=== PATIENT | female | born 1975 | race Caucasian/White ===

== ENCOUNTER 2016-12-27 20:34 | Emergency (ER) | payer OTHER ==
[2016-12-27 21:03] VITALS: BP 123/75
[2016-12-27] MEDS ORDERED: Azithromycin TAB* 250 MG PO ONE (21:15)
[2016-12-27] MEDS ORDERED: Albuterol HFA INHALER* 8 gm MDI INH ONE (21:15)
--- NOTE | 2016-12-27 21:23 | UC ---
Respiratory Complaint HPI - HPI Summary HPI Summary: For 2 weeks has had nasal congestion, facial pressure/pain, cough, and trouble breathing. Denies wheezing; had high fever in the beginning, then has had a lot of temps in the 99-100 range. No hx of asthma or COPD. - History of Current Complaint Chief Complaint: UCRespiratory Stated Complaint: RESPIRATORY Time Seen by Provider: 12/27/16 20:57 Hx Obtained From: Patient Hx Last Menstrual Period: 12/19/16 ?: No Onset/Duration: Gradual Onset, Lasting Weeks Timing: Constant Severity Initially: Moderate Severity Currently: Moderate Character: Cough: Productive Aggravating Factors: Deep Breaths, Recumbent Position Alleviating Factors: Upright Position Associated Signs And Symptoms: Positive: Fever, URI, Nasal Congestion, Sinus Discomfort - Allergies/Home Medications Allergies/Adverse Reactions: Allergies Allergy/AdvReac Type Severity Reaction Status Date / Time Hydrocodone [From Vicodin] Allergy Severe Hives Verified 12/27/16 20:54 Amoxicillin Allergy Hives Verified 12/27/16 20:54 Erythromycin Allergy Hives Verified 12/27/16 20:54 Penicillins Allergy Difficulty Verified 12/27/16 20:54 Breathing Sulfamethoxazole Allergy Difficulty Verified 12/27/16 20:54 w/Trimethoprim Breathing [From Bactrim] lobster Allergy Intermediate Hives Uncoded 12/27/16 20:54 red dye Allergy Intermediate Hives Uncoded 12/27/16 20:54 Home Medications: Home Medications Acetaminophen TAB* [Tylenol TAB*] 650 mg PO Q4H PRN 12/27/16 [History Confirmed 12/27/16] GuaiFENesin DM* [Robitussin DM*] 10 ml PO Q6H PRN 12/27/16 [History Confirmed ] PMH/Surg Hx/FS Hx/Imm Hx Previously Healthy: Yes - Surgical History Surgical History: Yes Surgery Procedure, Year, and Place: T&A - Family History Known Family History: Positive: Hypertension - Social History Occupation: Employed Full-time Alcohol Use: Occasionally Substance Use Type: None Smoking Status (MU): Heavy Every Day Tobacco Smoker Type: Cigarettes Amount Used/How Often: 4 CIGS PER DAY Length of Time of Smoking/Using Tobacco: 21 Years Have You Smoked in the Last Year: Yes Household Exposure Type: Cigarettes - Immunization History Most Recent Influenza Vaccination: April 2015 Review of Systems Constitutional: Fever - resolved Skin: Negative Eyes: Negative ENT: Sore Throat, Nasal Discharge Respiratory: Cough Cardiovascular: Negative Gastrointestinal: Negative Genitourinary: Negative Motor: Negative Neurovascular: Negative Musculoskeletal: Negative Neurological: Negative Psychological: Negative All Other Systems Reviewed And Are Negative: Yes Physical Exam Triage Information Reviewed: Yes Appearance: Well-Appearing, No Pain Distress, Well-Nourished Vital Signs: Initial Vital Signs Temp 98.3 F 12/27/16 20:56 Pulse 82 12/27/16 20:56 Resp 20 12/27/16 20:56 BP 123/75 12/27/16 20:56 Pulse Ox 97 12/27/16 20:56 Vital Signs Reviewed: Yes Eye Exam: Normal Eyes: Positive: Conjunctiva Clear ENT: Positive: Pharynx normal, Nasal congestion, Nasal drainage. Negative: Tonsillar swelling, Tonsillar exudate Dental Exam: Normal Neck exam: Normal Neck: Positive: Supple, Nontender, No Lymphadenopathy Respiratory: Positive: Normal breath sounds, No respiratory distress Cardiovascular Exam: Normal Cardiovascular: Positive: RRR, No Murmur Musculoskeletal Exam: Normal Neurological Exam: Normal Neurological: Positive: Alert Psychological Exam: Normal Skin Exam: Normal Diagnostic Evaluation - Laboratory O2 Sat by Pulse Oximetry: 97 Respiratory Course/Dx - Differential Dx/Diagnosis Provider Diagnoses: acute bronchitis. sinusitis. elevated blood pressure due to discomfort Discharge - Discharge Plan Condition: Stable Disposition: HOME Prescriptions: Azithromycin [Azithromycin 500 MG TAB] 500 mg PO DAILY #3 tab Benzonatate CAP* [Tessalon 100 MG CAP*] 100 mg PO TID PRN #30 cap PRN Reason: cough Patient Education Materials: Acute Bronchitis (ED), Sinusitis (ED) Forms: *Work Release Referrals: MEHNAZ Houston [Primary Care Provider] - Additional Instructions: Call or return if you develop increasing fever, shortness of breath, chest pain , bloody sputum, or otherwise worsen. If you have not improved at all after several days, contact your primary care physician or return here.
== END 2016-12-27 21:44 | disposition home or self-care (01) ==
LOC: UCCORT 20:34
DX: J20.9 Acute bronchitis, unspecified (principal); J32.9 Chronic sinusitis, unspecified; R03.0 Elevated blood-pressure reading, without diagnosis of hypertension; Z72.0 Tobacco use
CPT/HCPCS: 99212; A9270-GY; G0463

== ENCOUNTER 2017-02-07 07:01 | Emergency (ER) | payer OTHER ==
--- NOTE | 2017-02-07 07:13 | UC ---
Hip/Pelvis Pain - HPI Summary HPI Summary: 42 YEAR OLD FEMALE PRESENTS WITH LEFT HIP PAIN. - History Of Current Complaint Stated Complaint: LEFT HIP PAIN Time Seen by Provider: 02/07/17 07:06 Hx Last Menstrual Period: 12/19/16 - Allergies/Home Medications Allergies/Adverse Reactions: Allergies Allergy/AdvReac Type Severity Reaction Status Date / Time Hydrocodone [From Vicodin] Allergy Severe Hives Verified 02/07/17 07:09 Amoxicillin Allergy Hives Verified 02/07/17 07:09 Penicillins Allergy Difficulty Verified 02/07/17 07:09 Breathing Sulfamethoxazole Allergy Difficulty Verified 02/07/17 07:09 w/Trimethoprim Breathing [From Bactrim] Erythromycin AdvReac GI Verified 02/07/17 07:09 lobster Allergy Intermediate Hives Uncoded 02/07/17 07:09 red dye Allergy Intermediate Hives Uncoded 02/07/17 07:09 PMH/Surg Hx/FS Hx/Imm Hx - Surgical History Surgical History: Yes Surgery Procedure, Year, and Place: T&A - Family History Known Family History: Positive: Hypertension - Social History Alcohol Use: Occasionally Substance Use Type: None Smoking Status (MU): Heavy Every Day Tobacco Smoker Type: Cigarettes Amount Used/How Often: 4 CIGS PER DAY Length of Time of Smoking/Using Tobacco: 21 Years Have You Smoked in the Last Year: Yes Household Exposure Type: Cigarettes - Immunization History Most Recent Influenza Vaccination: April 2015 Review of Systems Constitutional: Negative Skin: Negative Eyes: Negative ENT: Negative Respiratory: Negative Cardiovascular: Negative Gastrointestinal: Negative Genitourinary: Negative Motor: Negative Neurovascular: Negative Musculoskeletal: Arthralgia, Myalgia - left hip pain, Other: Neurological: Negative Psychological: Negative All Other Systems Reviewed And Are Negative: Yes Physical Exam Triage Information Reviewed: Yes Hip Injury Course/Dx - Differential Dx/Diagnosis Provider Diagnoses: left hip pain Discharge - Discharge Plan Condition: Stable Disposition: HOME Prescriptions: Meloxicam [Mobic] 7.5 mg PO BID PC #30 tab Methocarbamol [Robaxin-750 MG TAB] 750 mg PO Q8HR PRN #30 tab PRN Reason: Spasms - Back Patient Education Materials: Hip Pain (ED) Referrals: MEHNAZ Houston [Primary Care Provider] - If Needed
[2017-02-07 07:30] VITALS: BP 120/81
== END 2017-02-07 07:24 | disposition home or self-care (01) ==
LOC: UCCORT 07:01
DX: M25.552 Pain in left hip (principal); Z88.5 Allergy status to narcotic agent; Z88.1 Allergy status to other antibiotic agents; Z88.0 Allergy status to penicillin; Z88.2 Allergy status to sulfonamides; F17.210 Nicotine dependence, cigarettes, uncomplicated
CPT/HCPCS: 99212; G0463

== ENCOUNTER 2017-08-22 07:02 | Emergency (ER) | payer OTHER ==
--- NOTE | 2017-08-22 07:05 | UC ---
Eye Complaint HPI - HPI Summary HPI Summary: 42 year old female with eye complaint. Right eye pain and swelling, redness, discharge onset one week ago; no injury . she wears contact but last day 3 days ago. no vision changes . no fever. no headache. no FB sensation [ End ] - History of Current Complaint Stated Complaint: RIGHT EYE COMPLAINT Time Seen by Provider: 08/22/17 07:04 Hx Obtained From: Patient Hx Last Menstrual Period: 12/19/16 ?: No Onset/Duration: Gradual Onset Timing: Constant Severity Initially: Mild Severity Currently: Moderate Aggravating Factor(s): Nothing Alleviating Factor(s): Nothing Associated Signs And Symptoms: Positive: Drainage (Clear), Drainage (Purulent) - Allergies/Home Medications Allergies/Adverse Reactions: Allergies Allergy/AdvReac Type Severity Reaction Status Date / Time Hydrocodone [From Vicodin] Allergy Severe Hives Verified 08/22/17 07:09 Amoxicillin Allergy Hives Verified 08/22/17 07:09 Penicillins Allergy Difficulty Verified 08/22/17 07:09 Breathing Sulfamethoxazole Allergy Difficulty Verified 08/22/17 07:09 w/Trimethoprim Breathing [From Bactrim] Erythromycin AdvReac GI Verified 08/22/17 07:09 lobster Allergy Intermediate Hives Uncoded 08/22/17 07:09 red dye Allergy Intermediate Hives Uncoded 08/22/17 07:09 erythromycin Allergy Vomiting Uncoded 08/22/17 07:19 PMH/Surg Hx/FS Hx/Imm Hx Previously Healthy: Yes Cardiovascular History: Hypertension - Surgical History Surgical History: Yes Surgery Procedure, Year, and Place: T&A - Family History Known Family History: Positive: Hypertension - Social History Alcohol Use: Occasionally Substance Use Type: None Smoking Status (MU): Heavy Every Day Tobacco Smoker Type: Cigarettes Amount Used/How Often: 4 CIGS PER DAY Length of Time of Smoking/Using Tobacco: 21 Years Have You Smoked in the Last Year: Yes Household Exposure Type: Cigarettes - Immunization History Most Recent Influenza Vaccination: April 2015 Review of Systems Eyes: Drainage, Eye Redness Is Patient Immunocompromised?: No All Other Systems Reviewed And Are Negative: Yes Physical Exam Triage Information Reviewed: Yes Appearance: Well-Appearing, No Pain Distress, Well-Nourished Vital Signs Reviewed: Yes Eyes: Positive: Conjunctiva Inflamed - right, Discharge - clear right, Other: - injected medially > laterally ENT Exam: Normal Neck exam: Normal Respiratory Exam: Normal Cardiovascular Exam: Normal Psychological Exam: Normal Skin Exam: Normal Eye Complaint Course/Dx - Course Course Of Treatment: subjunctival hemorrhage with conjucntivitis -- treat as bacterial for now since only in 1 eye and she does wear contacts but last time 3 days ago. with the eye pressure but denies vision loss or change will try topical antibiotics but she is aware if any concerns to go to optho in 1-4 days for follow up . go to ED if sx worsen. - Differential Dx/Diagnosis Differential Diagnosis/HQI/PQRI: Conjunctivitis, Keratitis, Uveitis Provider Diagnoses: conjunctivitis Discharge - Discharge Plan Condition: Good Disposition: HOME Referrals: MEHNAZ Houston [Medical Doctor] - 4 Days
[2017-08-22 07:28] VITALS: BP 131/87
== END 2017-08-22 07:49 | disposition home or self-care (01) ==
LOC: UCCORT 07:02
DX: H10.9 Unspecified conjunctivitis (principal); F17.210 Nicotine dependence, cigarettes, uncomplicated; I10 Essential (primary) hypertension
CPT/HCPCS: 99212; G0463

== ENCOUNTER 2018-11-09 07:01 | Emergency (ER) | payer OTHER ==
[2018-11-09 07:20] VITALS: BP 140/81
--- NOTE | 2018-11-09 07:38 | UC ---
Back Pain HPI - HPI Summary HPI Summary: 43 yo female with LBP for 2-3 weeks decreased ROM modest relief with tylenol and NSAIDs hx of similar symptoms in past no leg pain or paresthesia's no bowel or bladder dysfunction - History of Current Complaint Chief Complaint: UCBackPain Stated Complaint: LOWER BACK PAIN Time Seen by Provider: 11/09/18 07:28 Hx Obtained From: Patient Hx Last Menstrual Period: 10/15/18 Onset/Duration: Sudden Onset, Lasting Weeks Timing: Constant Severity Initially: Mild Severity Currently: Moderate Pain Intensity: 4 Pain Scale Used: 0-10 Numeric Back Pain: Is Diffuse - see image Character: Dull, Aching Aggravating Factor(s): Movement, Lifting, Bending Alleviating Factor(s): Rest, OTC Meds Associated Signs And Symptoms: Negative: Swelling, Redness, Bruising, Fever, Weakness, Numbness, Tingling, Abdominal Pain, Flank Pain, Bladder Incontinence, Bowel Incontinence, Weight Loss, Pain with Weight Bearing Full Body (No Head): 1 - pain - Allergies/Home Medications Allergies/Adverse Reactions: Allergies Allergy/AdvReac Type Severity Reaction Status Date / Time amoxicillin Allergy Hives Verified 11/09/18 07:22 hydrocodone Allergy Hives Verified 11/09/18 07:22 Penicillins Allergy Difficulty Verified 11/09/18 07:22 Breathing sulfamethoxazole Allergy Difficulty Verified 11/09/18 07:22 [From Bactrim] Breathing trimethoprim [From Bactrim] Allergy Difficulty Verified 11/09/18 07:22 Breathing lobster Allergy Intermediate Hives Uncoded 08/22/17 07:09 red dye Allergy Intermediate Hives Uncoded 08/22/17 07:09 erythromycin Allergy Vomiting Uncoded 08/22/17 07:19 Home Medications: Home Medications Nebivolol HCl [Bystolic] 5 mg PO DAILY 11/09/18 [History Confirmed 11/09/18] Sertraline HCl [Zoloft] 25 mg PO DAILY 11/09/18 [History Confirmed 11/09/18] hydrOXYzine HCl [Hydroxyzine HCl] 50 mg PO TID PRN 11/09/18 [History Confirmed 11/09/18] PMH/Surg Hx/FS Hx/Imm Hx Previously Healthy: Yes Cardiovascular History: Hypertension - Surgical History Surgical History: Yes Surgery Procedure, Year, and Place: T&A, gallbladder removal 02/2017 - Family History Known Family History: Positive: Cardiac Disease, Hypertension, Diabetes - Social History Alcohol Use: Occasionally Substance Use Type: None Smoking Status (MU): Heavy Every Day Tobacco Smoker Type: Cigarettes Amount Used/How Often: 4 CIGS PER DAY Length of Time of Smoking/Using Tobacco: 21 Years Have You Smoked in the Last Year: Yes Household Exposure Type: Cigarettes - Immunization History Most Recent Influenza Vaccination: April 2015 Review of Systems All Other Systems Reviewed And Are Negative: Yes Constitutional: Positive: Negative Skin: Positive: Negative Eyes: Positive: Negative ENT: Positive: Negative Respiratory: Positive: Negative Cardiovascular: Positive: Negative Gastrointestinal: Positive: Negative Genitourinary: Positive: Negative Motor: Positive: Decreased ROM - lowr back Neurovascular: Positive: Negative Musculoskeletal: Positive: Myalgia - lower back Neurological: Positive: Negative Psychological: Positive: Negative Physical Exam Triage Information Reviewed: Yes Appearance: Well-Appearing, No Pain Distress, Well-Nourished Vital Signs: Initial Vital Signs Temp 98.1 F 11/09/18 07:15 Pulse 77 11/09/18 07:15 Resp 16 11/09/18 07:15 BP 140/81 11/09/18 07:15 Pulse Ox 99 11/09/18 07:15 Vital Signs Reviewed: Yes Eyes: Positive: Conjunctiva Clear ENT: Positive: Hearing grossly normal. Negative: Nasal congestion, Nasal drainage, Trismus, Muffled voice, Hoarse voice, Sinus tenderness Dental Exam: Normal Neck: Positive: Supple, Nontender Respiratory: Positive: Lungs clear, Normal breath sounds, No respiratory distress, No accessory muscle use Cardiovascular: Positive: RRR, No Murmur Musculoskeletal: Positive: ROM Intact, No Edema Neurological: Positive: Alert Psychological Exam: Normal Skin Exam: Normal Back Pain Course/Dx - Course Course Of Treatment: UA tr blood - Differential Dx/Diagnosis Provider Diagnosis: Acute myofascial strain of lumbar region Discharge - Sign-Out/Discharge Documenting (check all that apply): Patient Departure All imaging exams completed and their final reports reviewed: No Studies - Discharge Plan Condition: Stable Disposition: HOME Prescriptions: Cyclobenzaprine (NF) [Cyclobenzaprine 5 MG (NF)] 5 mg PO TID PRN #21 tab PRN Reason: Spasms - Back Patient Education Materials: Low Back Strain (ED) Forms: *Work Release Referrals: Kendal Dukes PA [Primary Care Provider] - 2 Days Additional Instructions: tylenol or ibuprofen don't take muscle relaxer and drive or work PT consult - Billing Disposition and Condition Condition: STABLE Disposition: Home
== END 2018-11-09 07:55 | disposition home or self-care (01) ==
LOC: UCCORT 07:01
DX: S39.012A Strain of muscle, fascia and tendon of lower back, initial encounter (principal); X58.XXXA Exposure to other specified factors, initial encounter; Y92.9 Unspecified place or not applicable; I10 Essential (primary) hypertension; Z88.1 Allergy status to other antibiotic agents; Z88.5 Allergy status to narcotic agent; Z88.0 Allergy status to penicillin; Z91.013 Allergy to seafood; Z88.2 Allergy status to sulfonamides; Z91.048 Other nonmedicinal substance allergy status; F17.210 Nicotine dependence, cigarettes, uncomplicated
CPT/HCPCS: 81003; 99212; G0463